=== PATIENT | male | born 1960 | race Caucasian/White ===

== ENCOUNTER → 2020-07-28 08:13 | Outpatient (BNVA) | payer BC, SELFPAY | PROVIDERS: Family Provider Family Medicine; PCP Family Medicine; Visit Provider Nurse Practitioner Family | DX: Z01.818 Encounter for other preprocedural examination (principal) | CPT/HCPCS: 87635 ==

== ENCOUNTER → 2020-10-12 08:56 | Outpatient (BNVA) | payer MEDICARE, SELFPAY | PROVIDERS: Family Provider Family Medicine; PCP Family Medicine; Visit Provider Urology | DX: N39.0 Urinary tract infection, site not specified (principal); R33.9 Retention of urine, unspecified; N99.111 Postprocedural bulbous urethral stricture, male | CPT/HCPCS: 81003; 87077; 87086; 87184 ==

== ENCOUNTER → 2020-12-03 09:42 | Outpatient (BNVA) | payer MEDICARE, SELFPAY | PROVIDERS: Family Provider Family Medicine; PCP Family Medicine; Visit Provider Urology | DX: R33.9 Retention of urine, unspecified (principal); N39.0 Urinary tract infection, site not specified | CPT/HCPCS: 81003; 87077; 87086; 87184 ==

== ENCOUNTER → 2021-06-02 09:41 | Outpatient (BNVA) | payer MEDICARE, SELFPAY | PROVIDERS: Family Provider Family Medicine; PCP Family Medicine; Visit Provider Urology | DX: N39.0 Urinary tract infection, site not specified (principal); R33.9 Retention of urine, unspecified; N99.111 Postprocedural bulbous urethral stricture, male; N45.1 Epididymitis | CPT/HCPCS: 81003; 87077; 87086; 87184 ==

== ENCOUNTER → 2021-08-04 08:39 | Outpatient (BNVA) | payer MEDICARE, SELFPAY | PROVIDERS: Family Provider Family Medicine; PCP Family Medicine; Visit Provider Urology | DX: N39.0 Urinary tract infection, site not specified (principal); R33.9 Retention of urine, unspecified; N99.111 Postprocedural bulbous urethral stricture, male; R82.71 Bacteriuria; N45.1 Epididymitis | CPT/HCPCS: 81003; 87077; 87086; 87184 ==

== ENCOUNTER 2021-09-27 09:13 | Outpatient (CLI) | payer MEDICARE, SELFPAY ==
--- NOTE | 2021-09-27 09:31 | US_ITS ---
WS: [id number] Complete ABDOMINAL ULTRASOUND HISTORY: CHRONIC KIDNEY DZ STAGE 4/ESSENTIAL HTN COMPARISON: Renal ultrasound 06/26/2013 Liver: 17.5 cm in length. Mildly enlarged liver with coarse echotexture. No mass. The entire liver is not well visualized. Gallbladder: Normally distended with no gallstones, wall thickening or pericholecystic fluid. Gallbladder wall thickness: 0.2 cm. Pancreas: Not well visualized. CBD: 0.4 cm. Right kidney: 12.1 cm x 4.8 cm x 4.9 cm. Mild diffuse cortical thinning. There is a slightly lobulat ed complex cystic mass in the upper pole which is poorly visualized. Cystic mass measures 2.3 x 1.4 x 1.6 cm. This cyst has been previously described and noted on the study of 11/20/2014. Left kidney: 13.1 cm x 4.1 cm x 3.4 cm. Normal size kidney but there is severe atrophy and increased echogenicity with poor cortical medullary differentiation. Similar to the prior study of 06/26/2013. Spleen: Normal size and echogenicity. Abdominal aorta and IVC are within normal limits. No ascites. US/US abdomen complete* [id number] IMPRESSION: 1. Mild hepatic steatosis and hepatomegaly. 2. Normal gallbladder. 3. Severe cortical thinning LEFT kidney with advanced medical renal disease. P rogression of chronic changes since 06/26/2013. 4. Long-term stability complex cyst RIGHT kidney. 5. Very mild diffuse cortical thinning RIGHT kidney. Unchanged.
== END 2021-09-27 09:14 | disposition home or self-care (01) ==
LOC: RAD 09:26
PROVIDERS: PCP Family Medicine; Visit Provider Registered Nurse
DX: I12.9 Hypertensive chronic kidney disease with stage 1 through stage 4 chronic kidney disease, or unspecified chronic kidney disease (principal); N18.4 Chronic kidney disease, stage 4 (severe); K76.0 Fatty (change of) liver, not elsewhere classified; R16.0 Hepatomegaly, not elsewhere classified; N28.1 Cyst of kidney, acquired
CPT/HCPCS: 76700; 93976

== ENCOUNTER → 2021-10-11 11:02 | Outpatient (BNVA) | payer MEDICARE, SELFPAY | PROVIDERS: PCP Family Medicine; Visit Provider Urology | DX: R33.9 Retention of urine, unspecified (principal); N99.111 Postprocedural bulbous urethral stricture, male; R82.71 Bacteriuria | CPT/HCPCS: 81003 ==

== ENCOUNTER → 2022-04-12 10:25 | Outpatient (BNVA) | payer MEDICARE, SELFPAY | PROVIDERS: PCP Family Medicine; Visit Provider Urology | DX: N39.0 Urinary tract infection, site not specified (principal); R33.9 Retention of urine, unspecified; N99.111 Postprocedural bulbous urethral stricture, male | CPT/HCPCS: 51798; 81003; 99213 ==

== ENCOUNTER → 2022-11-03 14:01 | Outpatient (BNVA) | payer MEDICARE, SELFPAY | PROVIDERS: PCP Family Medicine; Visit Provider Internal Medicine Cardiovascular Disease | DX: I10 Essential (primary) hypertension (principal); E78.5 Hyperlipidemia, unspecified; K21.9 Gastro-esophageal reflux disease without esophagitis; J44.9 Chronic obstructive pulmonary disease, unspecified; Z87.891 Personal history of nicotine dependence | CPT/HCPCS: 99214 ==

== ENCOUNTER → 2023-04-11 08:21 | Outpatient (BNVA) | payer MEDICARE, SELFPAY | PROVIDERS: PCP Family Medicine; Visit Provider Urology | DX: R33.9 Retention of urine, unspecified (principal); N20.1 Calculus of ureter; N99.111 Postprocedural bulbous urethral stricture, male; N39.0 Urinary tract infection, site not specified | CPT/HCPCS: 51741; 51798; 81003; 99213 ==

== ENCOUNTER → 2023-05-15 08:36 | Outpatient (BNVA) | payer MEDICARE, SELFPAY | PROVIDERS: PCP Family Medicine; Visit Provider Nurse Practitioner Family | DX: D22.5 Melanocytic nevi of trunk (principal) | CPT/HCPCS: 11102; 17004; 99213 ==

== ENCOUNTER → 2023-10-18 14:16 | Outpatient (BNVA) | payer MEDICARE, SELFPAY | PROVIDERS: PCP Family Medicine; Visit Provider Internal Medicine Cardiovascular Disease | DX: I10 Essential (primary) hypertension (principal); Z87.891 Personal history of nicotine dependence | CPT/HCPCS: 99214 ==

== ENCOUNTER → 2023-11-16 15:19 | Outpatient (BNVA) | payer MEDICARE, SELFPAY | PROVIDERS: PCP Family Medicine; Visit Provider Nurse Practitioner Family | DX: L23.7 Allergic contact dermatitis due to plants, except food (principal); L57.0 Actinic keratosis; L57.8 Other skin changes due to chronic exposure to nonionizing radiation; D22.4 Melanocytic nevi of scalp and neck; L81.4 Other melanin hyperpigmentation | CPT/HCPCS: 17000; 99214 ==

== ENCOUNTER → 2024-02-07 08:53 | Outpatient (BNVA) | payer MEDICARE, SELFPAY | PROVIDERS: PCP Family Medicine; Visit Provider Nurse Practitioner Family | DX: L23.7 Allergic contact dermatitis due to plants, except food (principal); L57.0 Actinic keratosis; L57.8 Other skin changes due to chronic exposure to nonionizing radiation; D22.4 Melanocytic nevi of scalp and neck; L81.4 Other melanin hyperpigmentation | CPT/HCPCS: 17004; 99214 ==

== ENCOUNTER → 2024-06-10 09:33 | Outpatient (BNVA) | payer MEDICARE, SELFPAY | PROVIDERS: PCP Family Medicine; Visit Provider Nurse Practitioner Family | DX: L57.0 Actinic keratosis (principal); L57.8 Other skin changes due to chronic exposure to nonionizing radiation; D22.4 Melanocytic nevi of scalp and neck; L81.4 Other melanin hyperpigmentation; L73.8 Other specified follicular disorders | CPT/HCPCS: 17004; 99214 ==

== ENCOUNTER → 2024-10-10 08:16 | Outpatient (BNVA) | payer MEDICARE, SELFPAY | PROVIDERS: PCP Family Medicine; Visit Provider Nurse Practitioner Family | DX: L57.8 Other skin changes due to chronic exposure to nonionizing radiation (principal); L73.8 Other specified follicular disorders; D18.01 Hemangioma of skin and subcutaneous tissue; D48.5 Neoplasm of uncertain behavior of skin; L57.0 Actinic keratosis | CPT/HCPCS: 11102; 17000; 99213 ==

== ENCOUNTER → 2024-10-17 11:41 | Outpatient (BNVA) | payer MEDICARE, SELFPAY | PROVIDERS: PCP Family Medicine; Visit Provider Internal Medicine Cardiovascular Disease | DX: R07.9 Chest pain, unspecified (principal) | CPT/HCPCS: 93005 ==

== ENCOUNTER 2024-11-13 07:14 | Outpatient (CLI) | payer MEDICARE, SELFPAY ==
--- NOTE | 2024-11-13 07:15 | USCV_ITS ---
Ra Mahajan Age: 64 Gender: M : 1960 Exam Date: 11/13/2024 07:38 Ordering Phys: Ellen Freeman MD ([email or web address]) Technologist: Exam Location: [facility] [place] Indication: chest pain BP: / HR: 60 Rhythm: Sinus Technical Quality: Adequate MEASUREMENTS (Male / Female) Normal Values 2D ECHO LV Diastolic Diameter PLAX 4.4 cm 4.2 - 5.9 / 3.9 - 5.3 cm IVS Diastolic Thickness 1.2 cm 0.6 - 1.0 / 0.6 - 0.9 cm IVS Systolic Thickness 1.9 cm LVPW Diastolic Thickness 1.1 cm 0.6 - 1.0 / 0.6 - 0.9 cm LVPW Systolic Thickness 1.8 cm LVOT Diameter 2.0 cm LV Ejection Fraction 2D Teich 61.8 % LV Ejection Fraction MOD 4C 44.1 % LV Ejection Fraction MOD 2C 64.7 % LV Ejection Fraction 2C AL 64.2 % LA Diameter 4.0 cm RA Systolic Volume 4C AL 41.6 ml RA Systolic Volume 4C MOD 39.3 ml Aorta at Sinotubular Diameter 2.8 cm M-MODE LA Ao Ratio MM 1.1 AV Cusp Separation MM 2.3 cm DOPPLER AV Peak Velocity 134.0 cm/s LVOT Peak Velocity 96.0 cm/s AV Area Cont Eq vti 2.3 cm squared AV Area Cont Eq pk 2.3 cm squared MV Area PHT 2.9 cm squared Mitral E to A Ratio 0.6 TV Peak Velocity 177.5 cm/s TR Peak Velocity 189.0 cm/s TR Peak Gradient 14.3 mmHg TV Peak E Velocity 81.0 cm/s PV Peak Velocity 107.0 cm/s FINDINGS Left Ventricle Normal left ventricular size and systolic function, EF 64%.mild left ventricular hypertrophy. No regional wall motion abnormalities. Grade I/IV diastolic dysfunction (abnormal relaxation filling pattern), normal to mildly elevated filling pressures. Right Ventricle The right ventricle is normal in size and function. Right Atrium The right atrium is normal in size. Left Atrium The left atrium is normal in size. Mitral Valve No gross abnormalities noted Aortic Valve No gross abnormalities noted Tricuspid Valve No gross abnormalities noted Pulmonic Valve No gross abnormalities noted Pericardium Normal pericardium without effusion. Aorta Normal ascending aorta dimension. IVC Inferior vena cava not visualized. CONCLUSIONS Normal left ventricular size and systolic function, EF 64%.mild left ventricular hypertrophy. No regional wall motion abnormalities. Grade I/IV diastolic dysfunction (abnormal relaxation filling pattern), normal to mildly elevated filling pressures. Normal cardiac chamber sizes. No gross valvular abnormalities There is no pericardial effusion. There are no intracardiac masses. Compared to the previous study from 07/25/2018, there may not be a significant change Dr Ellen Freeman MD FACC (Electronically Signed) Final Date: 19 November 2024 23:16 S
== END 2024-11-13 07:15 | disposition home or self-care (01) ==
PROVIDERS: PCP Family Medicine; Visit Provider Internal Medicine Cardiovascular Disease
DX: R06.09 Other forms of dyspnea (principal); R93.1 Abnormal findings on diagnostic imaging of heart and coronary circulation
CPT/HCPCS: 93306

== ENCOUNTER 2024-11-22 07:40 | Outpatient (CLI) | payer MEDICARE, SELFPAY ==
--- NOTE | 2024-11-22 07:46 | US_ITS ---
WS: [id number] RENAL ULTRASOUND HISTORY: CHRONIC KIDNEY DISEASE COMPARISON: 09/27/2021 TECHNIQUE: 2-D and color Doppler imaging of the kidney submitted. Suboptimal evaluation of the kidneys. Right kidney: 10.7 cm x 5.9 cm x 5.6 cm. Cortex: 1.2 cm Kidneys normal size but poorly visualized. Mass would be difficult to exclude. No obstruction. Left kidney: 12.5 cm x 3.8 cm x 4.4 cm. Cortex: 0.7 cm Extremely poorly visualized LEFT kidney. Increased echogenicity with diffuse cortical thinning. Mass would be difficult to exclude. Aorta: Normal. Urinary Bladder: Normally distended. No intraluminal filling defect. US/US renal BI* [id number] IMPRESSION: 1. Poorly visualized kidneys. It would be difficult to exclude renal mass. 2. No hydronephrosis. 3. Diffuse cortical thinning with increased echogenicity LEFT kidney. 4. Normal size RIGHT kidney with only mild increased echogenicity.
== END 2024-11-22 07:41 | disposition home or self-care (01) ==
LOC: RAD 07:42
PROVIDERS: PCP Family Medicine; Visit Provider Internal Medicine Nephrology
DX: N18.32 Chronic kidney disease, stage 3b (principal); N17.9 Acute kidney failure, unspecified; R93.421 Abnormal radiologic findings on diagnostic imaging of right kidney; R93.422 Abnormal radiologic findings on diagnostic imaging of left kidney
CPT/HCPCS: 76770

== ENCOUNTER → 2025-02-27 15:32 | Outpatient (BNVA) | payer MEDICARE, SELFPAY | PROVIDERS: PCP Family Medicine; Visit Provider Nurse Practitioner Family | DX: L57.8 Other skin changes due to chronic exposure to nonionizing radiation (principal); L73.8 Other specified follicular disorders; D18.01 Hemangioma of skin and subcutaneous tissue; L57.0 Actinic keratosis | CPT/HCPCS: 17000; 99214 ==

== ENCOUNTER → 2025-04-21 08:48 | Outpatient (BNVA) | payer MEDICARE, SELFPAY | PROVIDERS: PCP Family Medicine; Visit Provider Nurse Practitioner Family | DX: I27.20 Pulmonary hypertension, unspecified (principal); I10 Essential (primary) hypertension; I51.7 Cardiomegaly; E78.2 Mixed hyperlipidemia; Z79.02 Long term (current) use of antithrombotics/antiplatelets; Z79.82 Long term (current) use of aspirin; Z86.73 Personal history of transient ischemic attack (TIA), and cerebral infarction without residual deficits; Z87.891 Personal history of nicotine dependence | CPT/HCPCS: 99214 ==

== ENCOUNTER 2025-07-09 10:06 | Outpatient (CLI) | payer MEDICARE, SELFPAY ==
--- NOTE | 2025-07-09 10:13 | CT_ITS ---
WS: [id number] LDCT LUNG CANCER SCREENING HISTORY: HX OF TOBACCO USE TECHNIQUE: Axial imaging performed from the apices to 1 cm below the costophrenic angles. Coronal and sagittal reformats are submitted with axial MIP series. All CT scans at [facility] use at least one of these dose optimization techniques: automated exposure control; mA and/or kV adjustment per patient size (includes targeted exams where dose is matched to clinical indication); or iterative reconstruction. DLP: 229.50 mGy.cm DIvol: Mean CTDIvol: 3.10 (mGy),Mean CTDIvol: 3.20 (mGy) COMPARISON: Chest 07/25/2018 Diagnostic quality: Limited. Patient was moving during the examination. Lungs: Severe emphysema. Markedly kyphotic patient. Breathing motion artifact. No large masses are identified. Smaller nodules would be easily obscured at this amount of motion. No pneumonia. No endobronchial lesions. Heart: Normal size heart. Coronary artery calcifications. Moderate atherosclerotic plaque within the aorta. No pathologically enlarged lymph nodes identified. Visualized parotid gland is normal.. Other findings: Small hiatal hernia. Severe atrophy LEFT kidney. No adrenal mass. Patient has a previously described RIGHT adrenal adenoma but this is not visualized today due to motion. Marked increase in thoracic kyphosis. Ankylosing spondylitis. CT/CT lung screening [id number] IMPRESSION: LUNG-RADS: 2-Benign Appearance or Behavior FOLLOW UP: 12 Month: Continue annual screening with LDCT OTHER FINDINGS (S MODIFIER): None.
== END 2025-07-09 10:07 | disposition home or self-care (01) ==
LOC: RAD 10:07
PROVIDERS: PCP Family Medicine; Visit Provider Internal Medicine
DX: Z12.2 Encounter for screening for malignant neoplasm of respiratory organs (principal); Z87.891 Personal history of nicotine dependence; J43.9 Emphysema, unspecified; I25.10 Atherosclerotic heart disease of native coronary artery without angina pectoris; K44.9 Diaphragmatic hernia without obstruction or gangrene; N26.1 Atrophy of kidney (terminal); D35.01 Benign neoplasm of right adrenal gland; M40.204 Unspecified kyphosis, thoracic region; M45.9 Ankylosing spondylitis of unspecified sites in spine
CPT/HCPCS: 71271

== ENCOUNTER → 2025-07-22 14:05 | Outpatient (BNVA) | payer MEDICARE, SELFPAY | PROVIDERS: PCP Family Medicine; Visit Provider Nurse Practitioner Family | DX: L57.8 Other skin changes due to chronic exposure to nonionizing radiation (principal); D18.01 Hemangioma of skin and subcutaneous tissue; L72.0 Epidermal cyst; L73.8 Other specified follicular disorders; L81.4 Other melanin hyperpigmentation; Z87.2 Personal history of diseases of the skin and subcutaneous tissue; L57.0 Actinic keratosis | CPT/HCPCS: 17000; 99214 ==

== ENCOUNTER → 2025-10-22 10:18 | Outpatient (BNVA) | payer MEDICARE, SELFPAY | PROVIDERS: PCP Family Medicine; Visit Provider Internal Medicine Cardiovascular Disease | DX: R06.02 Shortness of breath (principal); I27.20 Pulmonary hypertension, unspecified; I12.9 Hypertensive chronic kidney disease with stage 1 through stage 4 chronic kidney disease, or unspecified chronic kidney disease; N18.30 Chronic kidney disease, stage 3 unspecified; E78.5 Hyperlipidemia, unspecified; K21.9 Gastro-esophageal reflux disease without esophagitis; Z87.891 Personal history of nicotine dependence | CPT/HCPCS: 99214 ==